=== PATIENT | male | born 1980 | race Caucasian/White ===

== ENCOUNTER 2017-07-16 19:06 | Day surgery (SDC) | payer BC ==
[2017-07-16 19:40] LABS: BASOPHILS 0.1 % (0-2); EOSINOPHILS 0.9 % (0-7); HEMATOCRIT 47.2 % (42.0-54.0); HEMOGLOBIN 15.8 g/dL (13.5-17.5); IMMATURE GRANULOCYTES 0.4 % (0-5); LYMPHOCYTES 21.3 % (15-50); MCH 30.6 pg (26.0-34.0); MCHC 33.5 g/dL (31.0-37.0); MCV 91.3 fL (80.0-100.0); MEAN PLATELET VOLUME 9.8 fL (7.4-10.4); MONOCYTES 9.4 % (2-11); NEUTROPHILS 67.9 % (40-80); PLATELET COUNT 226 10x3/uL (130-400); RBC 5.17 10x6/uL (4.20-6.10); RDW 13.6 % (11.5-14.5); WBC 13.8 10x3/uL (4.8-10.8)
[2017-07-16 20:35] LABS: ALKALINE PHOSPHATASE 55 U/L (46-116); ALT (SGPT) 28 U/L (10-68); BILIRUBIN - TOTAL 0.68 mg/dL (0.2-1.3); CALC OSMOLALITY 272 mosm/kg (275-300); CALCIUM 9.7 mg/dL (8.5-10.1); CARBON DIOXIDE 26.9 mmol/L (21.0-32.0); CHLORIDE - SERUM 100 mmol/L (98-107); CREATININE - SERUM 1.1 mg/dL (0.6-1.3); GLUCOSE 93 mg/dL (74-106); POTASSIUM - SERUM 3.9 mmol/L (3.5-5.1); PROTEIN - SERUM 7.8 g/dL (6.4-8.2); SODIUM 136 mmol/L (136-145); UREA NITROGEN 16 mg/dL (7-18); eGFR NON AFRICAN AMERICAN 79 mL/min (90-120)
[2017-07-16 20:46] LABS: APTT 28.8 SECONDS (22.8-39.4); INR 0.91 (0.85-1.17); PROTIME 12.1 SECONDS (11.6-15.0)
[2017-07-16 20:57] LABS: APPEARANCE CLEAR (CLEAR); BILIRUBIN NEGATIVE (NEGATIVE); COLOR YELLOW (YELLOW); GLUCOSE NEGATIVE (NEGATIVE); KETONE NEGATIVE (NEGATIVE); NITRITE NEGATIVE (NEGATIVE); PROTEIN NEGATIVE (NEGATIVE); UROBILINOGEN NORMAL (NORMAL)
--- NOTE | 2017-07-16 23:30 | NUR ---
REC'D FROM SURGERY. ALERT AND ORIENTED X4. IS AT BEDSIDE. DENIED PAIN AT THIS TIME. WAS INSTRUCTED THAT HAD TO PEE BEFORE DISCHARGE. INSTRUCTED TO CALL IF NEEDED ANYTHING, VERBLAIZED UNDERSTANDING. BED LOW, LOCKED, CALL LIGHT IN REACH
[2017-07-17 00:22] VITALS: BP 123/73; BMI 36.3
--- NOTE | 2017-07-17 01:10 | NUR ---
URINATED AND HELD DOWN SOME APPLE JUICE. DC'D IV TO RIGHT AC, CATHETER INTACT, TOLERATED WELL. GAVE DISCHARGE INSTRUCTED TO FOLLOW UP WITH DR. QUICK IN TWO WEEKS, NO STRAINING, HEAVY LIFTING, CHANGE DRESSING NEEDED, KEEP CLEAN AND DRY, NO SHOWER OR BATH UNTIL WEDNESDAY. GAVE PRESCRIPTION TO . INSTRUCTED ON THE USE, VERBALIZED UNDERSTANDING. TAKEN TO CAR BY WHEELCHAIR.
--- NOTE | 2017-07-17 09:39 | OP ---
PATIENT NAME: LENORE KNAPP MEDICAL RECORD: [id number] :76 LOCATION:[facility] ADMISSION DATE: SURGEON: VIDHI QUICK MD DATE OF OPERATION: 07/16/2017 SURGEON: Vidhi Quick MD ANESTHESIA: General anesthesia by Trang Cavazos CRNA. PREOPERATIVE DIAGNOSIS: Left testicular torsion greater than 24 hours. FINDINGS: Black left testicle with some areas of viability. Left reactive hydrocele. Normal right testicle. PROCEDURE: Bilateral scrotal exploration, left orchiectomy, right orchidopexy. SPECIMENS: Left testicle. ESTIMATED BLOOD LOSS: None. CLINICAL HISTORY: This is a 36-year-old male, who works as a welding machine setter. He was traveling back from [facility] yesterday when at about 5:00 p.m., he started to develop left testicular pain. His encouraged him to seek medical attention, but he refused to do so. This morning, he said starting from the 11, he had increased pain. Finally he sought some medical attention and for some reason or other, he was transferred from [place], [place] to [place]. Here in the Emergency Room, an ultrasound of the scrotum was performed and no blood flow was seen going to the left testicle. Also, noted on the ultrasound were areas of internal necrosis of the left testicle. While he was driving to [place] from [place], he ate some crackers and had some ice tea. Although the risk of aspiration is present, testicular torsion represents an emergency and therefore, we will have to proceed with surgery. He was not allergic to any medications. He was given Ancef 1 gram IV production officer to the OR. The patient was aware that if the testicle was , we will have to remove it. The right side will be fixed down so that it will not twist on its blood supply. DESCRIPTION OF PROCEDURE: The patient was given induction of general anesthesia. He was placed in supine position and shaved, prepped and draped. An incision was made along the median raphe of the scrotum using a #10 blade. We then used Bovie to come down through the dartos fascia. We were able to daren the left tunica vaginalis out of the hemiscrotum. There was a hydrocele present. We opened up the hydrocele sac. We then everted the testicle out. It appeared to be not in torsion, but clearly the testicle itself was black and necrotic. At this point, we the left the left testicle alone for a bit. We turned our attention to the right testicle. The right hemiscrotum was opened up in a similar manner. The right testicle was brought out. The right testicle was normal and perfectly viable. The orchidopexy sutures are 2 in number, they are 4-0 Prolene. One is placed on the inferior pole of the testicle and it went down to the corresponding position on the right hemiscrotum. This was tied down. Then, another fixation suture was placed on the right lateral surface of the testicle and again it was attached to its corresponding location on the lateral hemiscrotum. With [address], the dartos fascia was reapproximated with a median raphe using running 4-0 Monocryl. OPERATIVE REPORT [id number] LENORE KNAPP This left the original left testicle to be closely examined. During the interim, it had not improved and pinking up at all. The cord was divided into using hemostats. The distal portion of the cord was cut using Chirinos scissors. This freed the testicle and it was sent to pathology in formalin. A suture ligature of 0 silk was used to tie the cord. No bleeding was seen. The cord was placed back in the hemiscrotum. The hemiscrotum was reapproximated using running 4-0 Monocryl. A simple interrupted 4-0 Vicryl sutures were placed to close the scrotal skin. A 0.25% Marcaine without epinephrine was used to provide local anesthetic to the incision line. Fluffs and mesh panties were then placed. The patient was awakened and brought to the recovery room. He will be going home with a prescription for [place] 5/325, 30 tablets, with no refills. I will see him in followup in 2 weeks' time to check on his wound healing. TRANSINT:[id number] Voice Confirmation ID: [id number] DOCUMENT ID: [id number] VIDHI QUICK MD at 0939 CC: [id number] DICTATION DATE: 07/16/172238 GAS TECHNICIAN: 07/17/[address] [facility] 07/17/17 [facility] [address] [place] [address]
== END 2017-07-17 01:28 | disposition home or self-care (01) ==
LOC: D.OPS 19:06 → D.ER 19:06 → D.US 19:06 → D.MS 22:44 → D.OPS 07-17 01:28
PROVIDERS: Family Medicine
DX: N44.00 Torsion of testis, unspecified (principal); N50.812 Left testicular pain; Z01.812 Encounter for preprocedural laboratory examination